=== PATIENT | male | born 1975 | race Two or more races ===

== ENCOUNTER 2019-04-16 12:55 | Inpatient (IN) | payer OTHER ==
[2019-04-29] MEDS ORDERED: FORTAMET500 MG (13:59)
[2019-04-29] MEDS ORDERED: ASA325 MG (13:59)
[2019-04-29] MEDS ORDERED: PROZAC40 MG (13:59)
[2019-04-29] MEDS ORDERED: ACIDO FOLICO (14:00)
[2019-04-29] MEDS ORDERED: DIALYVITE 8001 EAC1 (14:00)
[2019-04-29] MEDS ORDERED: PLAVIX75 MG (14:01)
[2019-04-29] MEDS ORDERED: [UNRECOGNIZED DRUG - OTHER] (14:01)
[2019-04-29] MEDS ORDERED: VITAMINA B12 (14:01)
[2019-04-29] MEDS ORDERED: ALDACTONE50 MG (14:01)
[2019-04-29] MEDS ORDERED: SIMVASTATIN20 MG (14:01)
[2019-05-19] MEDS ORDERED: B-12500 MCG PO (08:12)
[2019-05-19] MEDS ORDERED: FOLIC ACID1 MG PO (08:12)
[2019-05-19] MEDS ORDERED: IRON325 MG PO (08:13)
[2019-05-19] MEDS ORDERED: CARVEDILOL ER40 MG PO (08:14)
[2019-05-22] MEDS ORDERED: PERCOCET 5-3251 EACH PO (11:30)
[2019-05-22] MEDS ORDERED: PRILOSEC OTC20 MG PO (11:30)
[2019-05-22] MEDS ORDERED: INTESTINEX680 M1 PO (11:30)
== END 2019-05-22 15:46 | disposition home or self-care (01) | DRG 329 ==
LOC: SURG 05-12 11:00 → SURH 05-19 06:41 → O/R 05-19 06:41 → SURG 05-19 14:54 → O/R 05-19 15:54 → SURH 05-20 10:41
PROVIDERS: ADMIT Surgery
PROC: 07TB4ZZ Resection of Mesenteric Lymphatic, Percutaneous Endoscopic Approach (ICD-10-PCS; 2019-05-19)
PROC: 4A12X4Z Monitoring of Cardiac Electrical Activity, External Approach (ICD-10-PCS; 2019-05-19)
PROC: 4A033R1 Measurement of Arterial Saturation, Peripheral, Percutaneous Approach (ICD-10-PCS; 2019-05-19)
PROC: 5A09457 Assistance with Respiratory Ventilation, 24-96 Consecutive Hours, Continuous Positive Airway Pressure (ICD-10-PCS; 2019-05-19)
PROC: 3E0F7GC Introduction of Other Therapeutic Substance into Respiratory Tract, Via Natural or Artificial Opening (ICD-10-PCS; 2019-05-19)
PROC: 0DTG4ZZ Resection of Left Large Intestine, Percutaneous Endoscopic Approach (ICD-10-PCS; principal; 2019-05-19 14:00)
DX: C18.6 Malignant neoplasm of descending colon (principal); I50.41 Acute combined systolic (congestive) and diastolic (congestive) heart failure; I13.0 Hypertensive heart and chronic kidney disease with heart failure and stage 1 through stage 4 chronic kidney disease, or unspecified chronic kidney disease; Z99.11 Dependence on respirator [ventilator] status; R59.0 Localized enlarged lymph nodes; K63.89 Other specified diseases of intestine; I11.0 Hypertensive heart disease with heart failure; E11.22 Type 2 diabetes mellitus with diabetic chronic kidney disease; N18.2 Chronic kidney disease, stage 2 (mild); E66.01 Morbid (severe) obesity due to excess calories; K76.0 Fatty (change of) liver, not elsewhere classified; G47.33 Obstructive sleep apnea (adult) (pediatric); Z79.4 Long term (current) use of insulin

== ENCOUNTER 2019-05-04 05:45 | Day surgery (SDC) | payer OTHER ==
[~2019-05-04 05:45] MED LIST changes: -B-12500 MCG PO; -CARVEDILOL ER40 MG PO; -FOLIC ACID1 MG PO; -IRON325 MG PO
== END 2019-05-04 10:05 | disposition home or self-care (01) ==
LOC: AMB-ENDOS 05:45
DX: D12.4 Benign neoplasm of descending colon (principal); D12.5 Benign neoplasm of sigmoid colon

== ENCOUNTER → 2019-05-04 | Outpatient (CLI) | payer OTHER ==
[~2019-05-04] MED LIST: ACIDO FOLICO; ALDACTONE50 MG; ASA325 MG; B-12500 MCG PO; CARVEDILOL ER40 MG PO; DIALYVITE 8001 EAC1; FOLIC ACID1 MG PO; FORTAMET500 MG; IRON325 MG PO; PLAVIX75 MG; PROZAC40 MG; SIMVASTATIN20 MG; VITAMINA B12; [UNRECOGNIZED DRUG - OTHER]
== END | disposition home or self-care (01) ==
LOC: NUCLEAR 11:06
DX: I87.2 Venous insufficiency (chronic) (peripheral) (principal); Z86.718 Personal history of other venous thrombosis and embolism